=== PATIENT | male | born 1935 | race Caucasian/White ===

== ENCOUNTER 2016-09-30 15:27 | Observation (INO) | payer MEDICARE, OTHER ==
[2016-09-30] MEDS ORDERED: DETROL2 M1 PO (16:30)
[2016-09-30] MEDS ORDERED: METHOTREXATE PO (16:31)
[2016-09-30] MEDS ORDERED: FLOMAX0.4 M1 PO (16:31)
[2016-09-30] MEDS ORDERED: ZOCOR10 M1 PO (16:31)
[2016-09-30] MEDS ORDERED: PREDNISONE1 M1 PO (16:35)
[2016-09-30] MEDS ORDERED: PREDNISONE10 M1 PO ×2 (16:35→16:38)
[2016-09-30] MEDS ORDERED: LAMISIL250 M1 PO (16:38)
[2016-09-30] MEDS ORDERED: SYNTHROID25 MC1 PO (16:38)
[2016-09-30 16:51] LABS: URINE BILIRUBIN NEGATIVE (NEG); URINE BLOOD SMALL (NEG); URINE COLOR YELLOW; URINE GLUCOSE (UA) NEGATIVE (NEG); URINE KETONE SMALL (NEG); URINE LEUKOCYTE ESTERASE NEGATIVE (NEG); URINE NITRITE NEGATIVE (NEG); URINE PROTEIN SMALL (NEG)
[2016-09-30 16:52] LABS: URINE APPEARANCE CLEAR
[2016-09-30 16:59] LABS: URINE EPITHELIAL CELLS RARE /[HPF] (0-10); URINE RBC RARE /[HPF] (0-5); URINE WBC RARE /[HPF] (0-5)
[2016-09-30 20:49] LABS: URINE CREATININE-RANDOM 150 mg/dl (30-125); URINE SODIUM-RANDOM 29 mmol/L (20-110)
[2016-10-01 05:42] LABS: BASO % 0.2 % (0-2); EOS % 0.4 % (0-7); EOSINOPHIL ABSOLUTE COUNT 0.1 tho/cmm (0.0-0.7); HCT-HEMATOCRIT 35.2 % (36.0-53.5); HGB-HEMOGLOBIN 11.9 gm/dl (13.5-17.0); IMMATURE GRANULOCYTES ABSOLUTE 0.03 tho/cmm (0-0.03); IMMATURE GRANULOCYTES PERCENT 0.3 % (0-0.3); LYMPH % 13.2 % (20-45); LYMPH ABSOLUTE COUNT 1.5 tho/cmm (0.8-4.5); MCH (MEAN CORPUSCULAR HGB) 33.5 pg (28.0-32.0); MCHC MEAN CORPUSCULAR HGB CONC 33.8 % (32.0-36.0); MCV (MEAN CELL VOLUME) 99.2 fl (82.0-96.0); MEAN PLATELET VOLUME 10.1 cmc (9.4-12.4); MONO % 12.7 % (0-12); MONOCYTE ABSOLUTE COUNT 1.4 tho/cmm (0.0-1.2); NEUTROPHIL ABSOLUTE COUNT 8.2 tho/cmm (1.6-8.0); NEUTROPHIL-AUTOMATED 8.2 tho/cmm (1.6-8.0); NEUTROPHILS % 73.2 % (40-80); PLATELET COUNT 148 tho/cmm (150-450); RED BLOOD COUNT 3.55 mil/cmm (4.40-5.70); RED CELL DISTRIBUTION WIDTH 12.9 % (12.4-16.4); WHITE BLOOD COUNT 11.3 tho/cmm (4.0-10.0)
[2016-10-01 05:56] LABS: ANION GAP 12 mmol/L (0-20); BLOOD UREA NITROGEN 23 mg/dl (6-24); CALCIUM 8.2 mg/dl (8.5-10.5); CARBON DIOXIDE-VENOUS 27 mmol/L (22-32); CHLORIDE 108 mmol/l (96-110); CREATININE 1.35 mg/dl (0.60-1.30); GLUCOSE 104 mg/dL (70-110); POTASSIUM 3.9 mmol/L (3.7-5.1); SODIUM 143 mmol/L (135-145); eGFR VALUE FOR BLACK 56 mL/Min
[2016-10-01] MEDS ORDERED: PREDNISONE1 M1 PO (13:41)
== END 2016-10-01 14:32 ==
LOC: ORE 15:27 → CAR1 15:35
PROVIDERS: Family Medicine; Internal Medicine Cardiovascular Disease; ADMIT Internal Medicine Cardiovascular Disease
DX: A08.4 Viral intestinal infection, unspecified (principal); E86.0 Dehydration; N17.9 Acute kidney failure, unspecified; D72.829 Elevated white blood cell count, unspecified; M06.9 Rheumatoid arthritis, unspecified; E78.5 Hyperlipidemia, unspecified; E03.9 Hypothyroidism, unspecified; Z79.52 Long term (current) use of systemic steroids; Z79.899 Other long term (current) drug therapy; Z87.891 Personal history of nicotine dependence; Z98.890 Other specified postprocedural states
CPT/HCPCS: C8929; G0378; G8978-GP-CI; G8979-GP-CI; G8980-GP-CI; J7030